=== PATIENT | male | born 1990 | race African-American/Black ===

== ENCOUNTER 2016-06-22 00:10 | Emergency (ER) | payer MEDICAID, OTHER ==
[~2016-06-22] VITALS: Ht 177.8 cm; Wt 63.5 kg
[2016-06-22 00:13] VITALS: BP 126/73
--- NOTE | 2016-06-22 01:10 | NUR ---
TO ER OF1
--- NOTE | 2016-06-22 01:10 | NUR ---
PT BIB SELF C/O COUGH, RUNNYNOSE FOR 10DAYS. PT DENIES N/V/D; SKIN IS INTACT, PINK/WARM/DRY; AAOX4, PERRL, WITH EVEN AND STEADY GAIT; LUNGS CLEAR BL, BREATHING UNLABORED; HR EVEN AND REGULAR, BL PERIPHERAL PULSES PRESENT; BS ACTIVE X4, NO TENDERNESS TO PALPATION. PT DENIES ANY FEVER, CP, SOB, AT THIS TIME; PT STATES 3/10 PAIN AT THIS TIME; VSS; PATIENT POSITIONED FOR COMFORT; HOB ELEVATED; BEDRAILS UP X2; BED DOWN.
--- NOTE | 2016-06-22 01:13 | NUR ---
Patient being evaluated by physician.
[2016-06-22 02:34] VITALS: BP 122/71
--- NOTE | 2016-06-22 02:36 | NUR ---
Patient discharged with v/s stable. Written and verbal after care instructions given and explained. Patient alert, oriented and verbalized understanding of instructions. Ambulatory with steady gait. All questions addressed prior to discharge. ID band removed. Patient advised to follow up with PMD. Rx of AZITHROMYCIN 250,DEXTROMETHORPHAN 15MG-6.25MG given. Patient educated on indication of medication including possible reaction and side effects. Opportunity to ask questions provided and answered.
== END 2016-06-22 02:34 | disposition home or self-care (01) ==
LOC: MED 00:10
DX: J02.9 Acute pharyngitis, unspecified (principal); R03.0 Elevated blood-pressure reading, without diagnosis of hypertension; Z88.5 Allergy status to narcotic agent; Z88.6 Allergy status to analgesic agent
CPT/HCPCS: 71010; 99283

== ENCOUNTER 2018-03-27 20:52 | Emergency (ER) | payer OTHER ==
[~2018-03-27] VITALS: Ht 175.3 cm; Wt 59.0 kg
[2018-03-27 21:07] VITALS: BP 127/84
--- NOTE | 2018-03-27 21:11 | NUR ---
AMBULATED TO LOBBY WITH VSS.
--- NOTE | 2018-03-27 22:17 | NUR ---
NO ANSWER AT 2217; 2225; 2235. PATIENT LEFT WITHOUT BEING SEEN BY DR. OLIVAS. NO FURTHER CARE PROVIDED FOR PATIENT.
== END 2018-03-27 22:17 | disposition left against medical advice (07) ==
LOC: MED 20:52
DX: R07.9 Chest pain, unspecified (principal); Z53.21 Procedure and treatment not carried out due to patient leaving prior to being seen by health care provider

== ENCOUNTER 2018-06-17 17:23 | Emergency (ER) | payer OTHER ==
[~2018-06-17] VITALS: Ht 175.3 cm; Wt 59.0 kg
[2018-06-17 17:30] VITALS: BP 127/87
--- NOTE | 2018-06-17 17:35 | NUR ---
PT [facility]UL[facility] TO [facility]
--- NOTE | 2018-06-17 17:40 | NUR ---
PT C/O COLD SYMPTOMS COUGH, LOSS OF APPETITIE AND SORE THROAT 6/10 SORENESS. DENIES TAKING MEDICATION AT HOME. NO FEVER.
[2018-06-17 19:20] VITALS: BP 122/84
--- NOTE | 2018-06-17 19:20 | NUR ---
Patient discharged with v/s stable. Written and verbal after care instructions given and explained. Patient alert, oriented and verbalized understanding of instructions. Ambulatory with steady gait. All questions addressed prior to discharge. ID band removed. Patient advised to follow up with PMD. Rx of CLARITIN AND PROMETHAZINE DM given. Patient educated on indication of medication including possible reaction and side effects. Opportunity to ask questions provided and answered.
== END 2018-06-17 19:20 | disposition home or self-care (01) ==
LOC: MED 17:23
DX: J06.9 Acute upper respiratory infection, unspecified (principal); Z88.5 Allergy status to narcotic agent; Z88.6 Allergy status to analgesic agent; Z88.8 Allergy status to other drugs, medicaments and biological substances
CPT/HCPCS: 99283

== ENCOUNTER 2018-07-10 20:22 | Emergency (ER) | payer OTHER ==
[~2018-07-10] VITALS: Ht 175.3 cm; Wt 59.0 kg
[2018-07-10 20:40] VITALS: BP 123/67
--- NOTE | 2018-07-10 20:45 | NUR ---
PT AMBULATED TO BED 5.
--- NOTE | 2018-07-10 20:48 | NUR ---
28/M PRESENTS TO ED WITH FAMILY/FRIEND, C/O PLEURITIC BL LOWER CHEST PAIN, X2 DAYS, EXACERBATED BY COUGHING AND DEEP BREATHING. PT REPORTS NONPRODUCTIVE COUGH, SORE THROAT, CHILLS, X2 DAYS. DENIES FEVER. REPORTS VOMITING. AOX4, SKIN NORMAL WARM AND DRY, RR EVEN AND UNLABORED. DENIES MED HX, RX OR OTC.
--- NOTE | 2018-07-10 20:48 | NUR ---
DR. RAM BEDSIDE EVALUATING PT
[2018-07-10 21:10] VITALS: BP 123/67
--- NOTE | 2018-07-10 21:10 | NUR ---
Patient discharged with v/s stable. Written and verbal after care instructions given and explained. Patient alert, oriented and verbalized understanding of instructions. Ambulatory with steady gait. All questions addressed prior to discharge. ID band removed. Patient advised to follow up with PMD. Rx of PREDNISONE AND MOTRIN given. Patient educated on indication of medication including possible reaction and side effects. Opportunity to ask questions provided and answered.
== END 2018-07-10 21:10 | disposition home or self-care (01) ==
LOC: MED 20:22
DX: J02.9 Acute pharyngitis, unspecified (principal); R05 Cough; R07.89 Other chest pain; R11.10 Vomiting, unspecified; Z88.5 Allergy status to narcotic agent; Z88.6 Allergy status to analgesic agent
CPT/HCPCS: 99283

== ENCOUNTER 2018-12-04 19:35 | Emergency (ER) | payer OTHER ==
[~2018-12-04] VITALS: Ht 177.8 cm; Wt 57.6 kg
--- NOTE | 2018-12-04 19:39 | NUR ---
PT TAKEN TO BED 9
[2018-12-04 19:40] VITALS: BP 112/76
--- NOTE | 2018-12-04 19:50 | NUR ---
28 YO M BIB SELF AND FAMILY PRESENTS TO ED C/O DRY COUGH, RUNNY NOSE AND SORE THROAT X 6 DAYS WITH EPISODES OF VOMITING YESTERDAY. PT SAW PMD 2-3 DAYS AGO; WAS GIVEN PROMETHAZINE DM WITH NO RELIEF. PT DENIES FEVER, PLEURITIC CP, SOB. -- PT AWAKE, A/O X 4. CALM, COOPERATIVE. BEHAVIOR AGE APPROPRIATE. ANSWERS QUESTIONS IN CLEAR, FULL SENTENCES. -- SKIN PINK, WARM, DRY. BREATHING EVEN, UNLABORED. PMH-- CHRONIC BRONCHITIS
--- NOTE | 2018-12-04 20:25 | NUR ---
DR. NICHOLAS EVALUATING AT BEDSIDE.
[2018-12-04 20:40] VITALS: BP 111/62
--- NOTE | 2018-12-04 20:40 | NUR ---
DISCHARGE PAPERS GIVEN TO PT. NO RESPIRATORY DISTRESS. VSS. RX OF GUAIATUSSIN AC AND CETRIZINE GIVEN. SIDE EFFECTS EXPLAINED. INSTRUCTED TO F/U WITH PCP AND WHEN TO RETURN TO ER. PT VERBALLIZED UNDERSTANDING OF DC INSTRUCTIONS. ALL QUESTIONS ANSWERED.
== END 2018-12-04 20:40 | disposition home or self-care (01) ==
LOC: MED 19:35
DX: J06.9 Acute upper respiratory infection, unspecified (principal); Z88.5 Allergy status to narcotic agent; Z88.6 Allergy status to analgesic agent
CPT/HCPCS: 99282

== ENCOUNTER 2018-12-05 05:21 | Emergency (ER) | payer OTHER ==
[~2018-12-05] VITALS: Ht 175.3 cm; Wt 59.0 kg
[2018-12-05 05:26] VITALS: BP 129/79
--- NOTE | 2018-12-05 05:26 | NUR ---
PT TAKEN TO BED 2
--- NOTE | 2018-12-05 05:32 | NUR ---
PT C/O NAUSEA AND VOMITING S/P TAKING PRESCRIBED VIRTUSSIN AC SYRUP. PT WAS SEEN IN ED AROUND 2300 LAST NIGHT FOR COUGH. PT STATES HE ATE 30 MIN PRIOR TO MEDICINE AND IT MADE HIM "FEEL WEIRD". 1 EPISODE OF VOMITING. VSS AT THIS TIME. MEDHX: CHRONIC BRONCHITIS
--- NOTE | 2018-12-05 06:55 | NUR ---
Dr. Prado examining patient.
[2018-12-05 07:30] VITALS: BP 129/79
--- NOTE | 2018-12-05 07:30 | NUR ---
Patient discharged with v/s stable. Written and verbal after care instructions given and explained. Patient alert, oriented and verbalized understanding of instructions. Ambulatory with steady gait. All questions addressed prior to discharge. ID band removed. Patient advised to follow up with PMD. Rx of Acetaminophen/Codeine and Zofran ODT given. Patient educated on indication of medication including possible reaction and side effects. Opportunity to ask questions provided and answered.
== END 2018-12-05 07:30 | disposition home or self-care (01) ==
LOC: MED 05:21
DX: R05 Cough (principal); R11.10 Vomiting, unspecified; Z88.5 Allergy status to narcotic agent; Z88.6 Allergy status to analgesic agent
CPT/HCPCS: 99283

== ENCOUNTER 2018-12-13 12:05 | Emergency (ER) | payer OTHER ==
[~2018-12-13] VITALS: Ht 175.3 cm; Wt 59.0 kg
[2018-12-13 12:09] VITALS: BP 130/77
--- NOTE | 2018-12-13 12:16 | NUR ---
PT TO BED 8 WITH STEADY GAIT
--- NOTE | 2018-12-13 12:33 | NUR ---
PATIENT PRESENTS TO ED WITH NON-PRODUCTIVE COUGH X 7 DAYS. PT ALSO C/O VOMITING X 1 THIS MORNING, GENERALIZED BODY WEAKNESS, CHILLS, NAUSEA, H/A. PT DENIES FEVER, , COLDS. PT STATES THAT SHE WAS DIAGNOSED WITH CHRONIC BRONCHITIS IN THE PAST. SKIN IS PINK/WARM/DRY; AAOX4 WITH EVEN AND STEADY GAIT; LUNGS CLEAR BL; HR EVEN AND REGULAR; VSS; PATIENT POSITIONED FOR COMFORT; HOB ELEVATED; BEDRAILS UP X2; BED DOWN. ER MD MADE AWARE OF PT STATUS. PMH: CHRONIC BRONCHITIS NO ALLERGIES
[2018-12-13] MEDS ORDERED: ACETAMINOPHEN EXTRA STRENGTH 500 MG TAB PO ONE (12:40)
[2018-12-13 14:00] VITALS: BP 110/67
--- NOTE | 2018-12-13 14:00 | NUR ---
Patient discharged with v/s stable. Written and verbal after care instructions given and explained. Patient alert, oriented and verbalized understanding of instructions. Ambulatory with steady gait. All questions addressed prior to discharge. ID band removed. Patient advised to follow up with PMD. Rx of MOTRIN, TYLENOL given. Patient educated on indication of medication including possible reaction and side effects. Opportunity to ask questions provided and answered.
== END 2018-12-13 14:00 | disposition home or self-care (01) ==
LOC: MED 12:05
DX: B34.9 Viral infection, unspecified (principal); Z88.5 Allergy status to narcotic agent; Z88.6 Allergy status to analgesic agent
CPT/HCPCS: 87804; 99283

== ENCOUNTER 2018-12-30 12:44 | Emergency (ER) | payer OTHER ==
[~2018-12-30] VITALS: Ht 175.3 cm; Wt 59.0 kg
[2018-12-30 12:48] VITALS: BP 117/70
--- NOTE | 2018-12-30 13:00 | NUR ---
PT BACK TO LOBBY TO WAIT FOR BED IN STABLE CONDITION.
--- NOTE | 2018-12-30 13:37 | NUR ---
PT CALLED, NO RESPONSE - 1ST CALL
--- NOTE | 2018-12-30 13:45 | NUR ---
PT CALLED, NO RESPONSE - SECOND CALL
--- NOTE | 2018-12-30 13:52 | NUR ---
PT CALLED, NO RESPONSE - THIRD CALL. PT LEFT WITHOUT BEING SEEN AT 1337
== END 2018-12-30 14:14 | disposition left against medical advice (07) ==
LOC: MED 12:44
DX: R05 Cough (principal); J02.9 Acute pharyngitis, unspecified; R06.7 Sneezing; Z53.21 Procedure and treatment not carried out due to patient leaving prior to being seen by health care provider